=== PATIENT | male | born 1980 | race Caucasian/White ===

== ENCOUNTER 2021-12-09 06:18 | Inpatient (IN) | payer SELFPAY ==
[~2021-12-09] VITALS: Ht 175.3 cm; Wt 106.2 kg
[2021-12-09] MEDS ORDERED: SODIUM CHLORIDE 0.9% 1,000 ML IV ONE (06:45)
[2021-12-09 07:11] LABS: BASOPHILS % 0.8 % (0.0-2.0); EOSINOPHILS % 1.5 % (0.0-5.0); HEMATOCRIT. 48.6 % (42.0-52.0); HEMOGLOBIN. 16.5 g/dL (14.0-18.0); MEAN CORPUSCULAR HEMOGLOBIN 28.8 pg (28.0-32.0); MEAN PLATELET VOLUME 10.1 fl (7.4-10.4); MONOCYTES % 4.1 % (2.0-8.0); NEUTROPHILS % 67.6 % (40.0-76.0); PLATELET 244 x1000/uL (130-400); RED BLOOD CELL COUNT 5.72 mill/uL (4.7-6.1); RED CELL DISTRIBUTION WIDTH 13.6 % (11.6-14.6)
[2021-12-09 07:21] LABS: CHLORIDE 105 mEq/L (98-107)
[2021-12-09 08:30] LABS: CLARITY URINE CLOUDY (CLEAR); COLOR URINE DARK YELLOW (YELLOW); KETONES URINE TRACE (NEGATIVE); LEUKOCYTE ESTERASE URINE NEGATIVE (NEGATIVE); NITRITE URINE NEGATIVE (NEGATIVE); OCCULT BLOOD URINE NEGATIVE (NEGATIVE); PROTEIN URINE 3+ (NEGATIVE); SPECIFIC GRAVITY URINE 1.033 (1.005-1.030)
[2021-12-09 08:55] LABS: *AMPHETAMINES SCREEN URINE NEGATIVE (NEGATIVE); *BARBITURATES SCREEN URINE NEGATIVE (NEGATIVE); *BENZODIAZEPINES SCREEN URINE NEGATIVE (NEGATIVE); *COCAINE SCREEN URINE NEGATIVE (NEGATIVE); CANNABINOID URINE SCREEN NEGATIVE (NEGATIVE); METHADONE URINE SCREEN NEGATIVE (NEGATIVE); OPIATES URINE SCREEN NEGATIVE (NEGATIVE); PHENCYCLIDINE URINE SCREEN NEGATIVE (NEGATIVE)
[2021-12-09] MEDS ORDERED: MAGNESIUM/ALUMINUM HYDROXIDE/SIMETHICONE 30ML UDC PO PRN (12:00)
[2021-12-09] MEDS ORDERED: GUAIFENESIN 200MG/10ML SUGAR FREE UDC PO PRN (12:00)
[2021-12-09] MEDS ORDERED: ONDANSETRON HCL 4MG/2ML INJ IV PRN (12:00)
[2021-12-09] MEDS ORDERED: ACETAMINOPHEN 325MG TABLET PO PRN ×2 (12:00)
[2021-12-09] MEDS ORDERED: IPRATROPIUM/ALBUTEROL 0.5-3(2.5)MG/3ML NEB HHN PRN (12:00)
[2021-12-09] MEDS ORDERED: HYDROCODONE/ACETAMINOPHEN 5/325MG TABLET PO PRN (12:00)
[2021-12-09] MEDS ORDERED: DOCUSATE SODIUM 100MG CAPSULE PO PRN (12:00)
[2021-12-09] MEDS ORDERED: CLONIDINE 0.1MG TABLET PO PRN (12:00)
[2021-12-09 14:00] LABS: T4 FREE 0.8 ng/dL (0.76-1.46)
[2021-12-09] MEDS ORDERED: NALOXONE HCL 0.4MG/ML VIAL IV PRN (14:30)
[2021-12-09 16:50] VITALS: BP 115/82
[2021-12-09 17:20] VITALS: BP 115/82
[2021-12-09] MEDS ORDERED: LOPERAMIDE HCL 2MG CAPSULE PO PRN (17:30)
[2021-12-09] MEDS ORDERED: PNEUMOCOCCAL 23-VAL P-SAC VAC 0.5 ML IM ONE (18:15)
[2021-12-09] MEDS ORDERED: INFLUENZA VACCINE 05/PF 0.5 ML SYRINGE IM ONE (18:15)
[2021-12-09 20:00] VITALS: BP 118/76
[2021-12-09] MEDS: ENOXAPARIN 30MG/0.3ML SYR SUBCUT SCH (21:43)
[2021-12-10] VITALS: BP 118/74
[2021-12-10 04:00] VITALS: BP_SYST 121; BP_SYST 122; BP_SYST 143; BP_DIAS 77; BP_DIAS 80; BP_DIAS 86
[2021-12-10 06:46] LABS: BASOPHILS % 0.7 % (0.0-2.0); EOSINOPHILS % 1.2 % (0.0-5.0); HEMATOCRIT. 47.2 % (42.0-52.0); HEMOGLOBIN. 15.8 g/dL (14.0-18.0); LYMPHOCYTES % 25.4 % (20.0-50.0); MEAN CORPUSCULAR HEMOGLOBIN 28.8 pg (28.0-32.0); MEAN CORPUSCULAR VOLUME 85.7 fL (80.0-94.0); MEAN PLATELET VOLUME 9.8 fl (7.4-10.4); MONOCYTES % 4.8 % (2.0-8.0); NEUTROPHILS % 67.9 % (40.0-76.0); PLATELET 227 x1000/uL (130-400); RED CELL DISTRIBUTION WIDTH 13.7 % (11.6-14.6)
[2021-12-10 07:20] LABS: CHLORIDE 106 mEq/L (98-107)
[2021-12-10 07:31] LABS: HDL CHOLESTEROL 27 mg/dL (40-59)
[2021-12-10 07:33] LABS: LDL CHOLESTEROL 82 mg/dL (5-100)
[2021-12-10 08:00] VITALS: BP_SYST 120; BP_SYST 123; BP_SYST 142; BP_DIAS 80; BP_DIAS 82; BP_DIAS 88
[2021-12-10] MEDS: LEVOTHYROXINE SODIUM 100MCG TABLET PO SCH (08:43)
[2021-12-10] MEDS: AMLODIPINE 10MG TABLET PO SCH (08:44)
[2021-12-10] MEDS: GEMFIBROZIL 600MG TABLET PO SCH (08:44)
[2021-12-10] MEDS: ENOXAPARIN 30MG/0.3ML SYR SUBCUT SCH ×2 (08:45→21:34)
[2021-12-10 12:00] VITALS: BP 115/75
[2021-12-10] MEDS ORDERED: SODIUM CHLORIDE 0.9% 100 ML IV ONE (15:00)
[2021-12-10 16:00] VITALS: BP 132/89
[2021-12-10] MEDS ORDERED: SODIUM CHLORIDE 0.9% 1,000 ML IV SCH (16:15)
[2021-12-10 20:00] VITALS: BP 118/81
[2021-12-10] MEDS ORDERED: ATORVASTATIN CALCIUM 40MG TABLET PO SCH (21:00)
[2021-12-11] VITALS: BP 119/78
[2021-12-11 04:00] VITALS: BP 114/77
[2021-12-11] MEDS: LEVOTHYROXINE SODIUM 100MCG TABLET PO SCH (06:33)
[2021-12-11 08:00] VITALS: BP 113/72
[2021-12-11 08:04] LABS: BASOPHILS % 0.6 % (0.0-2.0); EOSINOPHILS % 1.5 % (0.0-5.0); HEMATOCRIT. 45.3 % (42.0-52.0); LYMPHOCYTES % 22.6 % (20.0-50.0); MEAN CORPUSCULAR HEMOGLOBIN 28.5 pg (28.0-32.0); MEAN CORPUSCULAR VOLUME 85.8 fL (80.0-94.0); MEAN PLATELET VOLUME 10.1 fl (7.4-10.4); MONOCYTES % 6.4 % (2.0-8.0); NEUTROPHILS % 68.9 % (40.0-76.0); PLATELET 216 x1000/uL (130-400); RED BLOOD CELL COUNT 5.28 mill/uL (4.7-6.1); RED CELL DISTRIBUTION WIDTH 13.5 % (11.6-14.6)
[2021-12-11 08:24] LABS: CHLORIDE 108 mEq/L (98-107)
[2021-12-11] MEDS: GEMFIBROZIL 600MG TABLET PO SCH (09:48)
[2021-12-11] MEDS: AMLODIPINE 10MG TABLET PO SCH (09:48)
[2021-12-11] MEDS: ENOXAPARIN 30MG/0.3ML SYR SUBCUT SCH (09:49)
[2021-12-11 12:00] VITALS: BP_SYST 107; BP_SYST 111; BP_SYST 134; BP_DIAS 65; BP_DIAS 81; BP_DIAS 83
[2021-12-11 13:00] VITALS: BP 135/65
[2021-12-12] MEDS ORDERED: LEVOTHYROXINE SODIUM 125MCG TABLET PO SCH (07:20)
[2021-12-15 13:06] LABS: OVA & PARASITE EXAM Final report (.)
== END 2021-12-11 14:30 | disposition home or self-care (01) | DRG 469 ==
LOC: ER 06:41 → 6WST 10:27 → EDBEDREQ 10:44 → EDBEDREQTM 10:44
PROVIDERS: ADMIT Hospitalist; ATTEND Hospitalist
PROC: 4B02XSZ Measurement of Cardiac Pacemaker, External Approach (ICD-10-PCS; principal; 2021-12-10)
DX: N17.9 Acute kidney failure, unspecified (principal); I95.9 Hypotension, unspecified; E03.9 Hypothyroidism, unspecified; E78.5 Hyperlipidemia, unspecified; Z20.822 Contact with and (suspected) exposure to COVID-19; I10 Essential (primary) hypertension; R00.1 Bradycardia, unspecified; R73.9 Hyperglycemia, unspecified; R19.7 Diarrhea, unspecified; Z95.0 Presence of cardiac pacemaker; Z82.49 Family history of ischemic heart disease and other diseases of the circulatory system; E86.0 Dehydration
CPT/HCPCS: 36415; 71045; 80053; 80061; 80305; 81003; 83036; 83880; 84439; 84443; 84484; 85025; 85379; 87015; 87045; 87177; 87209; 87426; 87427; 87449; 87493; 87804; 89055; 90686; 90732; 93005; 93306; 93970; 99285; C9803; J1650; J7030